=== PATIENT | female | born 1950 | race Asian ===

== ENCOUNTER 2018-01-18 07:35 | Day surgery (SDC) | payer OTHER ==
--- NOTE | 2018-01-17 09:39 | HP ---
Admitting History and Physical - Primary Care Physician PCP: Sandrine Genao - Admission Chief Complaint: Left breast atypia History of Present Illness: 59 year old postmenapausal female with screening mammogram show group of indeterminant calcifications in left breast 12:00 Birad 4. Left sterotactic core biopsy 12/2017 showed atypical ductal hyperplasia with associated calcifications. History Source: Patient Limitations to Obtaining History: No Limitations - Past Medical History Pulmonary: Yes: Asthma (mild and environmental allergies with injections) - Past Surgical History Past Surgical History: Yes: Cataract Removal (bilateral) - Smoking History Smoking history: Never smoked Aproximately how many cigarettes per day: 0 Home Medications - Allergies Allergies/Adverse Reactions: Allergies Allergy/AdvReac Type Severity Reaction Status Date / Time No Known Allergies Allergy Verified 01/07/14 10:35 - Home Medications Home Medications: Ambulatory Orders Calcium [Hi-Dong] 250 mg PO DAILY #0 tablet 06/15/13 Family Disease History - Family Disease History Family History: Denies Physical Examination Constitutional: Yes: Well Nourished Breast(s): Yes: Other (diffuselly nodular no masses or adenopathy, post op biopsy changes left breast) Problem List - Problems (1) Atypical ductal hyperplasia of left breast Code(s): N60.92 - UNSPECIFIED BENIGN MAMMARY DYSPLASIA OF LEFT BREAST Assessment/Plan Left breast wide excision with mammmogram needle localization
[2018-01-18 08:19] VITALS: BMI 23.0
[2018-01-18] MEDS ORDERED: ceFAZolin SODIUM 1 GM VIAL ONE (11:52)
[2018-01-18] MEDS ORDERED: DEXAMETHASONE SOD PHOSPHATE 4 MG/1 ML VIAL ONE (11:52)
[2018-01-18] MEDS ORDERED: ONDANSETRON 4 MG/2 ML VIAL ONE (11:52)
[2018-01-18] MEDS ORDERED: LIDOCAINE HCL/PF 2% SDV 5ML VIAL ONE (11:52)
[2018-01-18] MEDS ORDERED: KETOROLAC TROMETHAMINE 30 MG/1 ML VIAL ONE (11:53)
[2018-01-18] MEDS ORDERED: PROPOFOL 20 ML ONE ×2 (11:53→12:47)
[2018-01-18] MEDS ORDERED: MIDAZOLAM HCL 2 MG/2 ML SINGLE DOSE VIAL ONE (11:53)
[2018-01-18] MEDS ORDERED: LIDOCAINE HCL 1%, 10 MG/ML (20ML VIAL) ONE (11:56)
[2018-01-18] MEDS ORDERED: BUPIVACAINE HCL/PF 2.5 MG/ML - 30 ML VIAL IJ ONE (12:35)
[2018-01-18] MEDS ORDERED: KETOROLAC TROMETHAMINE 30 MG/1 ML VIAL IVPUSH PRN (13:18)
[2018-01-18] MEDS ORDERED: ONDANSETRON 4 MG/2 ML VIAL IVPUSH PRN (13:18)
[2018-01-18] MEDS ORDERED: DEXTROSE 5%-0.45% SALINE 1,000 ML IV SCH (13:30)
[2018-01-18] MEDS ORDERED: oxyCODONE HCL 5 MG TABLET PO PRN ×2 (14:10)
[2018-01-18] MEDS ORDERED: LACTATED RINGERS SOLUTION 1,000 ML IV SCH (14:15)
[2018-01-18 14:33] VITALS: TEMP 97.8
[2018-01-18 15:21] VITALS: BP 118/66; PULSE 58
--- NOTE | 2018-01-20 09:51 | OP ---
DATE OF OPERATION: 01/18/2018 PREOPERATIVE DIAGNOSIS: Left breast atypical ductal hyperplasia. POSTOPERATIVE DIAGNOSIS: Left breast atypical ductal hyperplasia. PROCEDURE: Left mammographically localized partial mastectomy. ANESTHESIA: IV sedation with local. ATTENDING SURGEON: Kelvin Genao MD MARKETING OPERATIONS ASSOCIATE: RICKEY Kelly ESTIMATED BLOOD LOSS: Minimal. COMPLICATIONS: None. DESCRIPTION OF PROCEDURE: Patient was made aware of the risks and benefits of the procedure. Preoperatively, patient went to the radiology suite where a needle and wire were placed next to the index lesion. She was then placed in a supine position on the operating table, and after IV sedation was administered, the operative site was prepped and draped in the usual sterile fashion. Local anesthesia was provided by a mixture of 1% lidocaine with a 1:1 ratio of 0.25% bupivacaine without epinephrine. A periareolar incision was made. Using electrocautery, a thick skin flap was made. The needle was withdrawn to the puncture site and a wire through the wound. Tissues around the wire were then sharply excised and submitted with a short suture superior, long suture lateral. The index lesion was identified, although there was no clip. Investigation of the wound showed no other suspicious areas, and it was felt at that point that the clip must have come out either in the suction or in sterile gauze. Either way, it was felt not to be necessary to remove any more breast tissue as everything was not suspicious and I felt that I had gotten the index lesion. The wound was copiously irrigated with normal saline. Hemostasis maintained with electrocautery. The wound was then closed with a deep 3-0 Vicryl, followed by a running subcuticular 4-0 Monocryl. Steri-Strips and sterile dressing as well as a compression bra were then applied, and the patient, having tolerated the procedure well, was transferred to the recovery room in excellent condition. KELVIN GENAO M.D. [id number]
--- NOTE | 2018-01-21 16:29 | PATH ---
Surgical Pathology Report Patient Name: GISELLA LIVINGSTON [facility]. Rec. #: [id number] /Age/Gender: 1950 (Age: 67) / F Account: [id number] Location: [facility] Taken: 01/18/2018 Received: 01/18/2018 Reported: 01/21/2018 Physicians: Sandrine Genao M.D. Specimen(s) Received LEFT BREAST WIDE EXCISION Clinical History ADH Final Diagnosis BREAST, LEFT, WIDE EXCISION: FOCAL ATYPICAL DUCTAL HYPERPLASIA (ADH), USUAL DUCTAL HYPERPLASIA (UDH), COLUMNAR CELL CHANGE, CYSTIC APOCRINE METAPLASIA AND ASSOCIATED CALCIFICATIONS. PRIOR BIOPSY SITE CHANGES ARE PRESENT. Electronically Signed Jenni Villafana M.D. Gross Description Received in formalin, labeled "left breast wide excision," is a 4.2 x 2.8 x 1.7 cm. price-yellow, irregular, portion of fibroadipose tissue with a needle localization wire present. There is a short suture marking the superior aspect and a long suture marking the lateral aspect, per the surgeon. There is no skin present. The specimen is inked as follows: superior and lateral blue; inferior green; medial yellow; anterior red; deep black. The specimen is serially sectioned from lateral to medial. Sectioning reveals a focus of hemorrhage associated with firm fibrous tissue, consistent with a previous biopsy site. No definitive mass is identified. The specimen is entirely and sequentially submitted in 8 cassettes with a lateral margin cassette 1, the medial margin in cassette 8 and the focus of hemorrhage in cassettes 4-6. Time to formalin fixation: 14 minutes Total formalin fixation time: Approximately 29 hours. 01/19/2018 [facility]01/19/2018
== END 2018-01-18 15:25 | disposition home or self-care (01) ==
LOC: FASU 07:35
PROVIDERS: ATTEND Surgery Surgical Oncology
PROC: 0HBU0ZZ Excision of Left Breast, Open Approach (ICD-10-PCS; principal; 2018-01-18 12:38)
DX: N60.82 Other benign mammary dysplasias of left breast (principal); N60.12 Diffuse cystic mastopathy of left breast; N64.89 Other specified disorders of breast
CPT/HCPCS: 19281; 88307-TC; 94760

== ENCOUNTER → 2023-01-26 | Day surgery (SDC) | payer OTHER | END | disposition home or self-care (01) | LOC: FMAMMOTONE 08:38 | PROVIDERS: ATTEND Internal Medicine | PROC: 0HBU3ZX Excision of Left Breast, Percutaneous Approach, Diagnostic (ICD-10-PCS; principal; 2023-01-26) | DX: N60.22 Fibroadenosis of left breast (principal); N64.89 Other specified disorders of breast; R92.0 Mammographic microcalcification found on diagnostic imaging of breast | CPT/HCPCS: 19081; 76098-TC-FY; 87899; 88305-TC; A4648 ==